=== PATIENT | male | born 1980 | race Caucasian/White ===

== ENCOUNTER 2022-03-29 12:59 | Emergency (ER) | payer SELFPAY ==
[2022-03-29 13:06] VITALS: BP 153/87; PULSE 82; RESP 17; TEMP 36.8; O2SAT 98
--- NOTE | 2022-03-29 14:15 | RT.EKG_ITS ---
APPROVED REPORT Exam: Resting ECG Reason for Exam: shoulder pain Patient Location: E HR:77 bpm ECG Measurements Heart Rate 77 AXIS ND 184 P 64 QRSd 83 QRS 57 QT 373 T 43 QTc 421 Conclusion Sinus rhythm...normal P axis, V-rate 60- 99 no STEMI, non-diagnostic EKG I have reviewed and interpreted ECG and agree with software generated interpretation.
--- NOTE | 2022-03-29 14:15 | DI.RAD_ITS ---
Exam(s) XR SHOULDER LT COMPLETE 2+V EXAM: XR SHOULDER LT COMPLETE 2+V CLINICAL HISTORY: left shoulder pain. TECHNIQUE: 2D digital imaging was performed. COMPARISON: No exams were available for comparison FINDINGS: Four views: No evidence of acute fracture or dislocation. However, there are multiple chunks of calcium in the s ubacromial space, consistent with calcific tendinitis-bursitis. These are in the region of the supra spinatus. There are no obvious degenerative changes in the glenohumeral joint. No osseous lesions. IMPRESSION: There are multiple calcific densities in the subacromial space consistent with rotator cuff (supraspi natus) calcific tendinitis/bursitis. DATA REPOSITORY: RADIATION DOSE DELIVERED:
[2022-03-29] MEDS: oxyCODONE 10 MG TAB PO (14:41)
[2022-03-29] MEDS: HYDROmorphone 2 MG/ML SYR 1 MG IM (15:36)
--- NOTE | 2022-03-30 14:43 | ED.GENADUL_ITS ---
Discharge Plan Disposition Patient Disposition: HOME Condition: Stable Discharge Details Clinical Impression: Biceps tendinitis Primary Care Provider: None,None ED Provider: Yamini Castro Home Meds and New Rx's Prescriptions: New prednisone 20 mg tablet 40 mg PO ONCE Qty: 10 0RF oxycodone 5 mg capsule 5 mg PO BID PRNQty: 7 0RF Discharge Instructions Instructions: Tendinitis (ED) Additional Instructions: Follow-up with physical therapy and orthopedics Decreased repetitive motion, continue to range her shoulder so it does not bec ome Take ibuprofen after your prednisone is completed Take the oxycodone sparingly, this medication is addictive Stand Alone Forms: Physical Therapy Referral Referrals: Felice Connolly MD [ [facility] STAFF PHYSICIAN] - Discharge Data Discharge Date/Time-TO BE ENTERED AT DEPARTURE: 03/29/22 15:35 Medical Decision Making Patient placed on prednisone, referral to orthopedics, calcific tendinitis noted on x-ray No evidence of septic joint Given small amount of opiate analgesia for home with referral to orthopedics applied EKG does not show evidence of acute abnormality without chest pain, return precautions discussed and patient expressed understanding Medical Records Medical records reviewed: Yes I reviewed the patient's medical records. HPI General Date/Time Provider Initiated Documentation: 03/29/22 14:07 . HPI Narrative: This 41-year-old male presents with left arm pain for 1 year. He states that he used to sleep on his arm and uses it frequently at work but denies known trauma. He states in the past week it is dramatically worsened. States he has pain with any sort of movement and it radiates down his arms. He denies any neck pain or weakness. Pain does exacerbate with contrast objects. He specifically denies any shortness of breath or chest discomfort. He denies any nausea or diaphoresis. He does not smoke, drink, or use any illicit drug per patient. Denies any calf pain or swelling. Related Data Home Medications Medication Instructions Recorded Confirmed oxycodone 5 mg capsule 5 mg PO BID PRN #7 caps 03/29/22 prednisone 20 mg tablet 40 mg PO ONCE #10 tabs 03/29/22 Previous Rx's Medication Instructions Recorded oxycodone 5 mg capsule 5 mg PO BID PRN #7 caps 03/29/22 prednisone 20 mg tablet 40 mg PO ONCE #10 tabs 03/29/22 Allergies Allergy/AdvReac Type Severity Reaction Status Date / Time No Known Allergies Allergy Unverified 03/29/22 13:11 General Stated Complaint: Orthopedic OTTO: 4 Review of Systems All systems reviewed & are unremarkable except as noted in HPI and below PFSH All Active Problems (Updated 03/29/22 @ 15:29 by BERTHA Yepez) Biceps tendinitis (Acute) Social History Smoking/Tobacco Use Status: Never Smoking risk assessment performed?: Yes Alcohol Intake: current Alcohol Intake frequency: holidays/special occasions only Alcohol type: beer Drug use: Never Substance use type: does not use Do you feel safe at home: Yes Do you feel safe in your relationship?: Yes Exam Const General: cooperative and comfortable Neck Other: No midline tenderness Chest Other: No chest wall tenderness Resp Effort & Inspection: normal respiratory effort Auscultation: clear to auscultation bilaterally Cardio Rate: regular rate Rhythm: regular rhythm Other: Distal pulses intact all 4 extremities GI Other: No abdominal tenderness Skin General skin exam: no rashes or lesions noted Neuro General: patient alert and patient oriented x3 Extrem Other: Left shoulder tenderness, however biceps tendon, no swelling or overlying erythema, diminished range of motion, held in adduction, internal rotation, neurovascularly intact Course Vital Signs Vital signs: Vital Signs Temperature 36.8 C 03/29/22 13:06 Pulse 82 03/29/22 13:06 Respiratory Rate 17 03/29/22 13:06 Blood Pressure 153/87 H 03/29/22 13:06 Pulse Oximetry 98 03/29/22 13:06 Temperature 36.8 C 03/29/22 13:06 Temperature Source Oral 03/29/22 13:06 Pulse 82 03/29/22 13:06 Respiratory Rate 17 03/29/22 13:06 Respiratory Effort Non-Labored 03/29/22 13:10 Blood Pressure 153/87 H 03/29/22 13:06 Blood Pressure Position Sitting 03/29/22 13:06 Pulse Oximetry 98 03/29/22 13:06 Oxygen Delivery Method Room Air 03/29/22 13:06 Oxygen Flow Rate 0 03/29/22 13:06 Pain Level 7 03/29/22 13:13
== END 2022-03-29 15:35 | disposition home or self-care (01) ==
PROVIDERS: Emergency Provider Physician Assistant
DX: M75.22 Bicipital tendinitis, left shoulder (principal); M25.512 Pain in left shoulder
CPT/HCPCS: 93005; 96372; 99284; 73030; 93010; 99283; J1170